=== PATIENT | male | born 1990 | race Caucasian/White ===

== ENCOUNTER 2016-11-21 20:08 | Emergency (ER) | payer OTHER ==
[2016-11-21 22:10] VITALS: BP 124/77
== END 2016-11-21 22:10 | disposition home or self-care (01) ==
LOC: ED 20:08
DX: S62.625A Displaced fracture of middle phalanx of left ring finger, initial encounter for closed fracture (principal); W19.XXXA Unspecified fall, initial encounter; Y93.89 Activity, other specified; Y92.89 Other specified places as the place of occurrence of the external cause; Y99.8 Other external cause status
CPT/HCPCS: J1885

== ENCOUNTER 2019-01-22 09:40 | Emergency (ER) | payer SELFPAY ==
[~2019-01-22] VITALS: Ht 175.3 cm; Wt 106.6 kg
[2019-01-22 10:10] VITALS: Ht 175.3 cm; Wt 106.6 kg
== END 2019-01-22 11:01 | disposition left against medical advice (07) ==
LOC: ED 09:40
DX: S01.511A Laceration without foreign body of lip, initial encounter (principal); S61.011A Laceration without foreign body of right thumb without damage to nail, initial encounter; S61.210A Laceration without foreign body of right index finger without damage to nail, initial encounter; W18.30XA Fall on same level, unspecified, initial encounter; Y93.89 Activity, other specified; Y92.89 Other specified places as the place of occurrence of the external cause; Y99.8 Other external cause status